=== PATIENT | female | born 1965 | race American Indian/Alaskan Native ===

== ENCOUNTER 2017-07-07 13:45 | Emergency (ER) | payer SELFPAY ==
[2017-07-07 14:01] VITALS: BP 125/80
[2017-07-07] MEDS ORDERED: TORADOL IM ONE (15:25)
[2017-07-07] MEDS ORDERED: NORCO 5/325 PO ONE (15:25)
--- NOTE | 2017-07-07 15:26 | Emergency Department Report ---
ED Lower Extremity HPI - General Chief Complaint: Extremity Injury, Lower Stated Complaint: FALL Time Seen by Provider: 07/07/17 15:01 Source: patient Mode of arrival: Ambulatory Limitations: No Limitations - History of Present Illness MD Complaint: knee injury -: Sudden (fall 2 days ago at [facility]. very dramatic) Injury: Knee: Right Type of Injury: blunt Severity: severe Improves With: nothing Worsens With: nothing Context: fall - Related Data Previous Rx's Medication Instructions Recorded Last Taken Type Naproxen [Naprosyn] 500 mg PO BID PRN #20 tablet 07/07/17 Unknown Rx Allergies Allergy/AdvReac Type Severity Reaction Status Date / Time cyclobenzaprine HCl Allergy Swelling Verified 07/07/17 13:58 [From Flexeril] tramadol Allergy Swelling Verified 07/07/17 13:58 ED Review of Systems ROS: Stated complaint: FALL Other details as noted in HPI Comment: Unobtainable due to pts medical conditions Constitutional: no symptoms reported, see HPI. denies: chills Eyes: as per HPI. denies: eye pain ENT: as per HPI. denies: ear pain, throat pain Respiratory: no symptoms reported, see HPI. denies: cough, orthopnea Cardiovascular: as per HPI. denies: chest pain, palpitations, dyspnea on exertion, orthopnea Endocrine: no symptoms reported, see HPI. denies: excessive sweating, flushing , intolerance to cold, intolerance to heat Gastrointestinal: as per HPI. denies: abdominal pain, nausea, vomiting Genitourinary: as per HPI. denies: urgency, dysuria Musculoskeletal: as per HPI, other (knee pain). denies: back pain Skin: as per HPI. denies: rash, lesions Neurological: as per HPI. denies: headache, weakness Psychiatric: as per HPI. denies: anxiety, depression Hematological/Lymphatic: as per HPI. denies: easy bleeding ED Past Medical Hx - Past Medical History Previous Medical History?: No - Surgical History Additional Surgical History: C/S - Social History Smoking Status: Never Smoker Substance Use Type: None - Medications Home Medications: Home Medications Medication Instructions Recorded Confirmed Last Taken Type Naproxen [Naprosyn] 500 mg PO BID PRN #20 tablet 07/07/17 Unknown Rx ED Physical Exam - General Limitations: No Limitations General appearance: alert - Head Head exam: Present: atraumatic - Eye Eye exam: Present: PERRL - ENT ENT exam: Present: normal exam, mucous membranes moist - Neck Neck exam: Present: normal inspection - Respiratory Respiratory exam: Present: normal lung sounds bilaterally - Cardiovascular Cardiovascular Exam: Present: regular rate - GI/Abdominal GI/Abdominal exam: Present: soft - Rectal Rectal exam: Present: deferred - Extremities Exam Extremities exam: Present: normal inspection - Expanded Lower Extremity Exam Right Hip exam: Present: normal inspection Upper Leg exam: Present: normal inspection Knee exam: Present: tenderness (w hardly any pressure. ). Absent: swelling ( obese. no effusion appreciated. ambulated in to er), abrasion, laceration, ecchymosis, deformity, crepidus, dislocation, erythema, effusion, pain w/ pronation/supination Lower Leg exam: Present: normal inspection Neuro vascular tendon exam: Present: no vascular compromise Gait: Positive: observed and normal - Back Exam Back exam: Present: normal inspection - Neurological Exam Neurological exam: Present: alert, oriented X3 - Psychiatric Psychiatric exam: Present: normal affect, normal mood - Skin Skin exam: Present: warm, dry ED Course Vital Signs 07/07/17 13:58 Temperature 97.4 F L Pulse Rate 66 Respiratory 20 Rate Blood Pressure 125/80 O2 Sat by Pulse 100 Oximetry - Reevaluation(s) Reevaluation #1: 07/07/17 15:32 ambulatory to er p falling at [facility] 2 days ago morbid obesity limits exam no effusion noted xray reviewed with Dr Desai Pt will not be able to use crutches Will chon and she will use cane at home medicated for pain see allergies dc w ortho follow up ED Lower Extremity MDM - Radiology Data Radiology results: image reviewed - Medical Decision Making xray noted follow up ortho - Differential Diagnosis ro fx Critical care attestation.: If time is entered above; I have spent that time in minutes in the direct care of this critically ill patient, excluding procedure time. ED Disposition Clinical Impression: Arthritis, Fall Knee pain Qualifiers: Chronicity: acute Laterality: right Qualified Code(s): M25.561 - Pain in right knee Disposition: PAT REG,NO TRIAGE Is pt being admited?: No Does the pt Need Aspirin: No Condition: Stable Instructions: Arthralgia (ED) Additional Instructions: chon cane ice motrin for pain follow up with ortho for further evaluation. Referrals: PRIMARY MD JACKIE [Primary Care Provider] - 3-5 Days MARGY CEVALLOS MD [Staff Physician] - 3-5 Days Time of Disposition: 15:34
--- NOTE | 2017-07-07 16:05 | XRay Report ---
FINAL REPORT EXAM: XR KNEE 3V RT HISTORY: rt knee pain TECHNIQUE: Three views of the right knee PRIORS: None. FINDINGS: There is medial tibiofemoral joint space narrowing. There is lateral meniscal calcification There is medial subluxation of the femur relative to the tibia There is marked patellofemoral joint space narrowing. No evidence for joint effusion. 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
== END 2017-07-07 16:03 | disposition left against medical advice (07) ==
LOC: ED 13:45
DX: M19.90 Unspecified osteoarthritis, unspecified site (principal); M25.561 Pain in right knee; W18.39XA Other fall on same level, initial encounter; Y93.89 Activity, other specified; Y99.8 Other external cause status; Y92.89 Other specified places as the place of occurrence of the external cause
CPT/HCPCS: 73562; 96372; 99283; J1885